=== PATIENT | female | born 1940 | race Two or more races ===

== ENCOUNTER → 2016-10-18 | Outpatient (CLI) | payer MEDICAID | LOC: CIMAGING 10:51 | PROVIDERS: ATTEND Family Medicine | DX: J18.1 Lobar pneumonia, unspecified organism (principal); R10.13 Epigastric pain; R19.05 Periumbilic swelling, mass or lump; R68.89 Other general symptoms and signs; B53.8 Other malaria, not elsewhere classified | CPT/HCPCS: 71020-PO; 80053-PO; 82150-PO; 82607-90; 83690-PO; 84443-PO ==

== ENCOUNTER → 2018-10-28 | Outpatient (CLI) | payer OTHER, MEDICAID | LOC: CIMAGING 10:26 | PROVIDERS: ATTEND Family Medicine | DX: M17.11 Unilateral primary osteoarthritis, right knee (principal) | CPT/HCPCS: 73564-PO ==